=== PATIENT | female | born 1990 | race Caucasian/White ===

== ENCOUNTER 2023-07-10 01:26 | Inpatient (IN) | payer SELFPAY ==
[~2023-07-10] VITALS: Ht 162.6 cm; Wt 80.7 kg
[2023-07-10] MEDS ORDERED: MORPHINE SULFATE 4 MG/ML CPJ (NOT FOR IM USE) IV STA (01:52)
[2023-07-10] MEDS ORDERED: ONDANSETRON HCL 4MG/2ML INJ IV STA (01:52)
[2023-07-10] MEDS ORDERED: SODIUM CHLORIDE 0.9% 1,000 ML IV ONE (02:00)
[2023-07-10 02:11] LABS: BASOPHILS % 0.5 % (0.0-2.0); HEMOGLOBIN. 13.8 g/dL (12.0-16.0); WHITE BLOOD COUNT 16.1 x1000/uL (4.5-11.0)
[2023-07-10 02:18] LABS: EOSINOPHILS % 0.7 % (0.0-5.0); HEMATOCRIT. 40.2 % (36.0-48.0); LYMPHOCYTES % 26.1 % (20.0-50.0); MEAN CORPUSCULAR HEMOGLOBIN 30.6 pg (28.0-32.0); MEAN CORPUSCULAR HGB CONC 34.3 g/dL (31.0-37.0); MEAN CORPUSCULAR VOLUME 89.3 fL (81.0-99.0); MEAN PLATELET VOLUME 9.1 fl (7.4-10.4); MONOCYTES % 4.3 % (2.0-8.0); NEUTROPHILS % 68.4 % (40.0-76.0); PLATELET 380 x1000/uL (130-400)
[2023-07-10 02:19] LABS: CHLORIDE 105 mEq/L (98-107); INDEX HEMOLYSI 1 (1-3); INDEX ICTERIC 1 (1-4); INDEX LIPEMIC 1 (1-3); POTASSIUM 3.2 mEq/L (3.5-5.1); SODIUM 137 mEq/L (136-145)
[2023-07-10 02:21] LABS: DIFFERENTIAL COMMENT 1
[2023-07-10 02:22] LABS: ALBUMIN 4.5 g/dL (3.4-5.0); CALCIUM 9.3 mg/dL (8.5-10.1); CARBON DIOXIDE 21 mEq/L (21-32); GLUCOSE 141 mg/dL (70-105); UREA NITROGEN BLOOD 14 mg/dL (7-21)
[2023-07-10 02:27] LABS: ALANINE AMINOTRANSFERASE 60 IU/L (13-61); ASPARTATE AMINOTRANSFERASE 24 IU/L (15-37); BILIRUBIN TOTAL 0.6 mg/dL (0.1-1.0); CREATININE 0.7 mg/dL (0.6-1.3); PROTEIN TOTAL 8.6 g/dL (6.0-8.3)
[2023-07-10 02:32] LABS: HCG SCREEN NEGATIVE
[2023-07-10 03:55] LABS: CLARITY URINE CLOUDY (CLEAR); COLOR URINE YELLOW (YELLOW); GLUCOSE URINE NEGATIVE (NEGATIVE); KETONES URINE 2+ (NEGATIVE); LEUKOCYTE ESTERASE URINE TRACE (NEGATIVE); NITRITE URINE NEGATIVE (NEGATIVE); OCCULT BLOOD URINE NEGATIVE (NEGATIVE); PROTEIN URINE TRACE (NEGATIVE); SPECIFIC GRAVITY URINE 1.024 (1.005-1.030)
[2023-07-10 03:58] LABS: BACTERIA URINE 2+; YEAST URINE NONE SEEN
[2023-07-10 04:19] LABS: SQUAMOUS EPITHELIAL CELL URINE FEW /lpf (RARE/1+)
[2023-07-10 04:25] LABS: RBC URINE 0-2 /hpf (0-2)
[2023-07-10] MEDS ORDERED: PIPERACILLIN/TAZ 3.375G PREMIX 50 ML IV ONE (04:30)
[2023-07-10] MEDS ORDERED: KCL 20MEQ/100ML PREMIX 100 ML IV ONE (04:30)
[2023-07-10] MEDS ORDERED: MORPHINE SULFATE 2 MG/ML CPJ (NOT FOR IM USE) IV PRN (06:45)
[2023-07-10 08:00] VITALS: BP 123/65; PULSE 70; RESP 18; TEMP 97.9
[2023-07-10 08:50] VITALS: BP 139/80; PULSE 71; RESP 20; TEMP 100.2
[2023-07-10] MEDS: FAMOTIDINE 20MG TABLET PO SCH (09:50)
[2023-07-10] MEDS: ONDANSETRON HCL 4MG/2ML INJ IV PRN ×2 (09:50→17:09)
[2023-07-10] MEDS: KETOROLAC 30MG/ML VIAL IV PRN ×2 (09:51→17:10)
[2023-07-10] MEDS ORDERED: NALOXONE HCL 0.4MG/ML VIAL IV PRN (11:00)
[2023-07-10] MEDS ORDERED: INFLUENZA VACCINE 05/PF 0.5 ML SYRINGE IM ONE (11:00)
[2023-07-10] MEDS: LEVOFLOXACIN 500MG TABLET PO SCH (11:07)
[2023-07-10 12:00] VITALS: BP 100/59; PULSE 97; RESP 19; TEMP 97.7
[2023-07-10 16:00] VITALS: BP 102/57; PULSE 80; RESP 18; TEMP 97.9
[2023-07-10 20:00] VITALS: BP 110/65; PULSE 90; RESP 20; TEMP 96.8
[2023-07-11] VITALS: BP 134/71; PULSE 102; RESP 20; TEMP 96.8
[2023-07-11 04:00] VITALS: BP 114/70; PULSE 86; RESP 20; TEMP 97.5
[2023-07-11 06:35] LABS: BASOPHILS % 0.2 % (0.0-2.0); EOSINOPHILS % 0.3 % (0.0-5.0); HEMATOCRIT. 36.4 % (36.0-48.0); HEMOGLOBIN. 12.4 g/dL (12.0-16.0); LYMPHOCYTES % 26.7 % (20.0-50.0); MEAN CORPUSCULAR HEMOGLOBIN 30.6 pg (28.0-32.0); MEAN CORPUSCULAR HGB CONC 33.9 g/dL (31.0-37.0); MEAN CORPUSCULAR VOLUME 90.2 fL (81.0-99.0); MEAN PLATELET VOLUME 9.6 fl (7.4-10.4); MONOCYTES % 10.4 % (2.0-8.0); NEUTROPHILS % 62.4 % (40.0-76.0); PLATELET 342 x1000/uL (130-400); RED BLOOD CELL COUNT 4.04 mill/uL (4.2-5.4); RED CELL DISTRIBUTION WIDTH 13.1 % (11.6-14.6); WHITE BLOOD COUNT 11.9 x1000/uL (4.5-11.0)
[2023-07-11 08:00] VITALS: BP 117/74; PULSE 87; RESP 19; TEMP 96.7
[2023-07-11] MEDS: FAMOTIDINE 20MG TABLET PO SCH (09:49)
[2023-07-11] MEDS: LEVOFLOXACIN 500MG TABLET PO SCH (09:50)
[2023-07-11 11:03] VITALS: BP 117/74; PULSE 87; TEMP 96.7; O2SAT 19
[2023-07-11 12:00] VITALS: BP 119/73; PULSE 86; RESP 20; TEMP 96.7
[2023-07-11] MEDS ORDERED: LEVO-65 MT ×3 (12:01)
== END 2023-07-11 14:57 | disposition home or self-care (01) ==
LOC: ER 01:38 → EDBEDREQ 05:29 → 6EST 08:18
PROVIDERS: ADMIT Internal Medicine; ATTEND Internal Medicine
DX: K80.18 Calculus of gallbladder with other cholecystitis without obstruction (principal); E66.9 Obesity, unspecified; E87.6 Hypokalemia; Z68.30 Body mass index [BMI] 30.0-30.9, adult
CPT/HCPCS: 36415; 74176; 76705; 80053; 81003; 84703; 85025; 93005; 99285; J1885; J2270; J2405; J2543; J3480; J7030

== ENCOUNTER 2023-07-12 14:37 | Inpatient (IN) | payer SELFPAY ==
[~2023-07-12] VITALS: Ht 162.6 cm; Wt 74.8 kg
[~2023-07-12 14:37] MED LIST: LEVO-65 MT
[2023-07-12] MEDS ORDERED: KETOROLAC 30MG/ML VIAL IV STA (14:48)
[2023-07-12] MEDS ORDERED: ONDANSETRON HCL 4MG/2ML INJ IV STA (14:48)
[2023-07-12] MEDS ORDERED: SODIUM CHLORIDE 0.9% 1,000 ML IV ONE (15:00)
[2023-07-12 15:25] LABS: BASOPHILS % 0.6 % (0.0-2.0); EOSINOPHILS % 0.5 % (0.0-5.0); HEMATOCRIT. 38.8 % (36.0-48.0); HEMOGLOBIN. 13.2 g/dL (12.0-16.0); LYMPHOCYTES % 19.2 % (20.0-50.0); MEAN CORPUSCULAR HEMOGLOBIN 30.6 pg (28.0-32.0); MEAN CORPUSCULAR VOLUME 90.2 fL (81.0-99.0); MEAN PLATELET VOLUME 9.3 fl (7.4-10.4); MONOCYTES % 7.5 % (2.0-8.0); NEUTROPHILS % 72.2 % (40.0-76.0); PLATELET 353 x1000/uL (130-400); WHITE BLOOD COUNT 12.6 x1000/uL (4.5-11.0)
[2023-07-12 15:34] LABS: HCG SCREEN NEGATIVE
[2023-07-12 15:37] LABS: ALANINE AMINOTRANSFERASE 81 IU/L (10-49); ALBUMIN 4.7 g/dL (3.2-4.8); ASPARTATE AMINOTRANSFERASE 48 IU/L (<34); BILIRUBIN TOTAL 1.6 mg/dL (0.1-1.0); CALCIUM 9.6 mg/dL (8.7-10.4); CARBON DIOXIDE 26 mEq/L (21-32); CHLORIDE 101 mEq/L (98-107); CREATININE 0.8 mg/dL (0.6-1.0); GLUCOSE 78 mg/dL (70-105); POTASSIUM 4.1 mEq/L (3.5-5.1); PROTEIN TOTAL 7.7 g/dL (6.0-8.3); SODIUM 136 mEq/L (136-145); UREA NITROGEN BLOOD 8 mg/dL (9-23)
[2023-07-12] MEDS ORDERED: PIPERACILLIN/TAZ 3.375G PREMIX 50 ML IV NR (17:15)
[2023-07-12] MEDS ORDERED: PIPERACILLIN/TAZOBACTAM 3.375GM/50ML PREMIX IV ONE (17:15)
[2023-07-12] MEDS ORDERED: ONDANSETRON HCL 4MG/2ML INJ IV NR (17:45)
[2023-07-12] MEDS ORDERED: KETOROLAC 15MG/ML VIAL IV NR (17:45)
[2023-07-12] MEDS ORDERED: ONDANSETRON HCL 4MG/2ML INJ IV PRN (23:45)
[2023-07-13] MEDS: HYDROCODONE/ACETAMINOPHEN 5/325MG TABLET PO PRN ×2 (00:34→06:40)
[2023-07-13 01:57] VITALS: BP 115/73; PULSE 85; RESP 18; TEMP 97.7
[2023-07-13] MEDS: SODIUM CHLORIDE 0.9% 1,000 ML IV SCH ×2 (07:15→19:01)
[2023-07-13] MEDS ORDERED: ACETAMINOPHEN 325MG TABLET PO PRN (07:45)
[2023-07-13] MEDS ORDERED: CLONIDINE 0.1MG TABLET PO PRN (07:45)
[2023-07-13] MEDS ORDERED: MAGNESIUM/ALUMINUM HYDROXIDE/SIMETHICONE 30ML UDC PO PRN (07:45)
[2023-07-13 08:00] VITALS: BP 114/70; PULSE 80; RESP 19; TEMP 99
[2023-07-13] MEDS ORDERED: NALOXONE HCL 0.4MG/ML VIAL IV PRN (08:00)
[2023-07-13 08:20] LABS: BASOPHILS % 0.3 % (0.0-2.0); HEMATOCRIT. 37.6 % (36.0-48.0); HEMOGLOBIN. 12.8 g/dL (12.0-16.0); LYMPHOCYTES % 27.2 % (20.0-50.0); MEAN CORPUSCULAR HEMOGLOBIN 30.9 pg (28.0-32.0); MEAN CORPUSCULAR HGB CONC 34.2 g/dL (31.0-37.0); MEAN CORPUSCULAR VOLUME 90.4 fL (81.0-99.0); MEAN PLATELET VOLUME 9.2 fl (7.4-10.4); MONOCYTES % 11.6 % (2.0-8.0); NEUTROPHILS % 59.9 % (40.0-76.0); PLATELET 333 x1000/uL (130-400); RED BLOOD CELL COUNT 4.16 mill/uL (4.2-5.4); RED CELL DISTRIBUTION WIDTH 13.1 % (11.6-14.6); WHITE BLOOD COUNT 9.3 x1000/uL (4.5-11.0)
[2023-07-13] MEDS: ENOXAPARIN 40MG/0.4ML SYR SUBCUT SCH (08:28)
[2023-07-13 08:59] LABS: CALCIUM 8.8 mg/dL (8.7-10.4); CARBON DIOXIDE 25 mEq/L (21-32); CHLORIDE 103 mEq/L (98-107); CREATININE 0.6 mg/dL (0.6-1.0); GLUCOSE 70 mg/dL (70-105); POTASSIUM 3.8 mEq/L (3.5-5.1); SODIUM 138 mEq/L (136-145); UREA NITROGEN BLOOD 8 mg/dL (9-23)
[2023-07-13 10:35] LABS: ALANINE AMINOTRANSFERASE 114 IU/L (10-49); ASPARTATE AMINOTRANSFERASE 134 IU/L (<34); BILIRUBIN DIRECT 0.7 mg/dL (<=3.0); BILIRUBIN TOTAL 2.5 mg/dL (0.1-1.0); PROTEIN TOTAL 6.4 g/dL (6.0-8.3)
[2023-07-13] MEDS ORDERED: MORPHINE SULFATE 2 MG/ML CPJ (NOT FOR IM USE) IV PRN (10:45)
[2023-07-13] MEDS ORDERED: CEFTRIAXONE 1GM PREMIX 50 ML IV SCH (11:30)
[2023-07-13 12:00] VITALS: BP 110/71; PULSE 78; RESP 19; TEMP 98
[2023-07-13] MEDS: METRONIDAZOLE 500 MG PREMIX 100 ML IV SCH ×2 (13:00→21:25)
[2023-07-13] MEDS: CEFTRIAXONE 1,000 MG in DEXTROSE 5% WATER 50 ML IV SCH (13:19)
[2023-07-13 16:00] VITALS: BP 134/71; PULSE 105; RESP 19; TEMP 100.8
[2023-07-13 20:00] VITALS: BP 126/80; PULSE 102; RESP 18; TEMP 97.2
[2023-07-14] VITALS: BP 121/71; PULSE 91; RESP 18; TEMP 97.4
[2023-07-14 04:00] VITALS: BP 115/72; PULSE 74; RESP 18; TEMP 96.5
[2023-07-14 06:31] LABS: BASOPHILS % 0.4 % (0.0-2.0); EOSINOPHILS % 0.5 % (0.0-5.0); HEMATOCRIT. 34.2 % (36.0-48.0); HEMOGLOBIN. 11.9 g/dL (12.0-16.0); LYMPHOCYTES % 22.9 % (20.0-50.0); MEAN CORPUSCULAR HEMOGLOBIN 31.4 pg (28.0-32.0); MEAN CORPUSCULAR HGB CONC 34.7 g/dL (31.0-37.0); MEAN CORPUSCULAR VOLUME 90.4 fL (81.0-99.0); MEAN PLATELET VOLUME 9.4 fl (7.4-10.4); MONOCYTES % 9.5 % (2.0-8.0); NEUTROPHILS % 66.7 % (40.0-76.0); PLATELET 330 x1000/uL (130-400); RED BLOOD CELL COUNT 3.78 mill/uL (4.2-5.4)
[2023-07-14] MEDS: SODIUM CHLORIDE 0.9% 1,000 ML IV SCH (06:32)
[2023-07-14] MEDS: METRONIDAZOLE 500 MG PREMIX 100 ML IV SCH ×2 (06:32→14:15)
[2023-07-14] MEDS ORDERED: BUPIVACAINE HCL/PF 0.5% (5MG/ML) 10ML ONE (07:04)
[2023-07-14 07:22] LABS: ALANINE AMINOTRANSFERASE 127 IU/L (10-49); ALBUMIN 3.9 g/dL (3.2-4.8); ASPARTATE AMINOTRANSFERASE 63 IU/L (<34); BILIRUBIN DIRECT 0.5 mg/dL (<=3.0); CALCIUM 8.9 mg/dL (8.7-10.4); CARBON DIOXIDE 22 mEq/L (21-32); CHLORIDE 102 mEq/L (98-107); CREATININE 0.6 mg/dL (0.6-1.0); GLUCOSE 76 mg/dL (70-105); POTASSIUM 3.7 mEq/L (3.5-5.1); PROTEIN TOTAL 6.7 g/dL (6.0-8.3); SODIUM 136 mEq/L (136-145); UREA NITROGEN BLOOD 6 mg/dL (9-23)
[2023-07-14] MEDS ORDERED: LIDOCAINE HCL 1% 10 MG/ML 10ML VIAL ONE (07:23)
[2023-07-14] MEDS ORDERED: PROPOFOL 200MG/20ML VIAL IV ONE (07:23)
[2023-07-14] MEDS ORDERED: ROCURONIUM BROMIDE 10MG/ML VIAL 5ML IV ONE (07:23)
[2023-07-14] MEDS ORDERED: DEXAMETHASONE 4MG/ML 1ML VIAL ONE (07:23)
[2023-07-14] MEDS ORDERED: ONDANSETRON HCL 4MG/2ML INJ ONE (07:23)
[2023-07-14] MEDS ORDERED: GLYCOPYRROLATE 0.2 MG/ML 2ML VIAL ONE ×2 (07:24)
[2023-07-14] MEDS ORDERED: FENTANYL CITRATE/PF 50MCG/ML 2ML VIAL ONE ×2 (07:24→08:18)
[2023-07-14] MEDS ORDERED: MIDAZOLAM HCL 2 MG/2 ML VIAL ONE ×2 (07:24→08:18)
[2023-07-14 08:00] VITALS: BP 117/67; PULSE 82; RESP 20; TEMP 98.5
[2023-07-14 08:21] LABS: BILIRUBIN TOTAL 1.5 mg/dL (0.1-1.0)
[2023-07-14] MEDS: ENOXAPARIN 40MG/0.4ML SYR SUBCUT SCH (08:41)
[2023-07-14] MEDS ORDERED: LEVO750T68 MT (10:58)
[2023-07-14] MEDS ORDERED: TOPUD PO (10:58)
[2023-07-14] MEDS ORDERED: METR-167 MT (10:58)
[2023-07-14 12:00] VITALS: BP 119/77; PULSE 97; RESP 20; TEMP 97.6
[2023-07-14] MEDS: CEFTRIAXONE 1,000 MG in DEXTROSE 5% WATER 50 ML IV SCH (12:50)
[2023-07-14 16:00] VITALS: BP 122/77; PULSE 97; RESP 20; TEMP 98.9
[2023-07-14 16:15] VITALS: BP 122/77; PULSE 97; TEMP 98.5; O2SAT 96
== END 2023-07-14 17:45 | disposition home or self-care (01) ==
LOC: ER 15:22 → 6EST 17:08 → EDBEDREQTM 17:21 → EDBEDREQ 17:21
PROVIDERS: ADMIT Family Medicine Adult Medicine; ATTEND Family Medicine Adult Medicine
DX: K80.00 Calculus of gallbladder with acute cholecystitis without obstruction (principal); D72.829 Elevated white blood cell count, unspecified; E80.6 Other disorders of bilirubin metabolism; R74.01 Elevation of levels of liver transaminase levels
CPT/HCPCS: 36415; 74181; 76705; 80048; 80053; 80076; 84703; 85025; 93970; 99291; J0696; J1100; J1650; J1885; J2250; J2270; J2405; J2543; J2704; J3010; J3490; J7030; J7060